=== PATIENT | female | born 1985 | race American Indian/Alaskan Native ===

== ENCOUNTER 2017-10-07 13:32 | Emergency (ER) | payer SELFPAY ==
[2017-10-07 14:36] LABS: Hematocrit 36.6 % (30.3-42.9); Hemoglobin 13.1 gm/dl (10.1-14.3); Mean Corpuscular HGB Conc 36 % (30-34); Mean Corpuscular Hemoglobin 30 pg (28-32); Mean Corpuscular Volume 83 fl (79-97); Platelet Count 297 K/mm3 (140-440); Red Blood Count 4.43 M/mm3 (3.65-5.03); Red Cell Distribution Width 14.4 % (13.2-15.2)
[2017-10-07] MEDS ORDERED: MORPHINE IV ONE (14:38)
[2017-10-07] MEDS ORDERED: TORADOL IV ONE (14:38)
[2017-10-07] MEDS ORDERED: NACL 0.9% 1000 ML 1,000 ML IV ONE (14:38)
[2017-10-07] MEDS ORDERED: ZOFRAN IV ONE (14:38)
[2017-10-07] MEDS ORDERED: KEPPRA 1,000 MG/NS 0.75% 100ML 1,000 MG/100 ML BAG IV ONE (14:39)
[2017-10-07 14:48] LABS: BUN/Creatinine Ratio 8; Blood Urea Nitrogen 5 mg/dL (7-17); Calcium 9.3 mg/dL (8.4-10.2); Hemolysis Index 4
--- NOTE | 2017-10-07 16:29 | Cat Scan Report ---
FINAL REPORT EXAM: CT HEAD/BRAIN WO CON HISTORY: headache, SZ TECHNIQUE: Noncontrast axial CT images of the brain. PRIORS: None. FINDINGS: Postsurgical changes, including basioccipital craniectomy. No parenchymal mass, hemorrhage, midline shift or hydrocephalus. No evidence of acute cortical infarct. No abnormal extra-axial fluid or air collections. Remainder of osseous calvarium grossly intact. IMPRESSION: 1. No acute intracranial findings. 2. Postsurgical changes.
--- NOTE | 2017-10-07 17:05 | Emergency Department Report ---
ED Seizure HPI - General Chief Complaint: Seizure Stated Complaint: SEIZURES Time Seen by Provider: 10/07/17 14:34 Source: patient, family Mode of arrival: Wheelchair Limitations: No Limitations - History of Present Illness Initial Comments: Patient is a 32-year-old Female with history of seizures who states that she has been out of her Keppra for the last 2 weeks and believes this to expensive for her to keep taking this medication. Patient does have a neurologist who sees her for seizures and pseudotumor cerebri. Patient is complaining of a headache after seizures she had earlier today. Patient normally gets headaches after her seizures. Patient denies any fevers chills nausea vomiting diarrhea or cough cold congestion at this time. - Related Data Previous Rx's Medication Instructions Recorded Last Taken Type Butalb/Acetamin/Caff 50-325-40 1 tab PO Q6HR PRN #12 tab 10/07/17 Unknown Rx [Fioricet] levETIRAcetam [Keppra] 500 mg PO BID #60 tablet 10/07/17 Unknown Rx Allergies Allergy/AdvReac Type Severity Reaction Status Date / Time Latex, Natural Rubber Allergy Rash Verified 10/07/17 13:42 ED Review of Systems ROS: Stated complaint: SEIZURES Other details as noted in HPI Comment: All other systems reviewed and negative ED Past Medical Hx - Past Medical History Previous Medical History?: Yes Hx Hypertension: Yes Additional medical history: pseudo tumor - Surgical History Past Surgical History?: Yes Additional Surgical History: brain sx 2013 - Social History Smoking Status: Current Every Day Smoker Substance Use Type: Alcohol - Medications Home Medications: Home Medications Medication Instructions Recorded Confirmed Last Taken Type Butalb/Acetamin/Caff 50-325-40 1 tab PO Q6HR PRN #12 tab 10/07/17 Unknown Rx [Fioricet] levETIRAcetam [Keppra] 500 mg PO BID #60 tablet 10/07/17 Unknown Rx ED Physical Exam - General Limitations: No Limitations General appearance: alert, in no apparent distress - Head Head exam: Present: atraumatic, normocephalic - Eye Eye exam: Present: normal appearance - ENT ENT exam: Present: mucous membranes moist - Neck Neck exam: Present: normal inspection - Respiratory Respiratory exam: Present: normal lung sounds bilaterally. Absent: respiratory distress - Cardiovascular Cardiovascular Exam: Present: regular rate, normal rhythm. Absent: systolic murmur, diastolic murmur, rubs, gallop - GI/Abdominal GI/Abdominal exam: Present: soft, normal bowel sounds - Extremities Exam Extremities exam: Present: normal inspection - Back Exam Back exam: Present: normal inspection - Neurological Exam Neurological exam: Present: alert, oriented X3 - Psychiatric Psychiatric exam: Present: normal affect, normal mood - Skin Skin exam: Present: warm, dry, intact, normal color. Absent: rash ED Course Vital Signs 10/07/17 13:43 Temperature 99.9 F H Pulse Rate 85 Respiratory 18 Rate Blood Pressure 135/99 O2 Sat by Pulse 100 Oximetry ED Medical Decision Making - Lab Data Result diagrams: 10/07/17 13:59 10/07/17 13:59 - Radiology Data CT of the head without contrast shows no acute process - Medical Decision Making Patient was given a good Rx car. I was able to look up Her under this program and is approximately 15 dialysis patient states that she would be able to afford. Patient was given IV fluids and medicines for her headache and she'll be discharged home. No further seizure activity was noted. Critical care attestation.: If time is entered above; I have spent that time in minutes in the direct care of this critically ill patient, excluding procedure time. ED Disposition Clinical Impression: Seizure Acute headache Qualifiers: Headache type: unspecified Intractability: not intractable Qualified Code(s): R51 - Headache Disposition: DC-01 TO HOME OR SELFCARE Is pt being admited?: No Does the pt Need Aspirin: No Condition: Stable Instructions: Epilepsy (ED) Prescriptions: Butalb/Acetamin/Caff 50-325-40 [Fioricet] 1 tab PO Q6HR PRN #12 tab PRN Reason: Headache levETIRAcetam [Keppra] 500 mg PO BID #60 tablet Referrals: PRIMARY CARE, [Primary Care Provider] - 3-5 Days Time of Disposition: 17:21
[2017-10-07] MEDS ORDERED: PERCOCET 5/325 PO ONE (18:38)
[2017-10-07] MEDS ORDERED: PERCOCET 5/325 ONE (18:43)
[2017-10-07 18:55] VITALS: BP 138/74
== END 2017-10-07 18:53 | disposition home or self-care (01) ==
LOC: ED 13:32
DX: R56.9 Unspecified convulsions (principal); R51 Headache; F17.200 Nicotine dependence, unspecified, uncomplicated; I10 Essential (primary) hypertension; Z91.040 Latex allergy status
CPT/HCPCS: 36415; 70450; 80048; 82962; 84703; 85027; 96365; 96366; 96375; 99284; J1885; J1953; J2270; J2405; J7030

== ENCOUNTER 2017-10-10 22:42 | Inpatient (IN) | payer OTHER ==
[2017-10-11] MEDS ORDERED: ZOFRAN IM ONE (02:00)
[2017-10-11] MEDS ORDERED: DILAUDID IM ONE (02:00)
[2017-10-11] MEDS ORDERED: FIORICET PO ONE (02:01)
[2017-10-11 02:10] LABS: Basophils % (Auto) 0.9 % (0.0-1.8); Eosinophils # (Auto) 0.1 K/mm3 (0.0-0.4); Eosinophils % (Auto) 3.2 % (0.0-4.3); Hematocrit 39.8 % (30.3-42.9); Hemoglobin 13.2 gm/dl (10.1-14.3); Lymphocytes # (Auto) 1.5 K/mm3 (1.2-5.4); Lymphocytes % (Auto) 31.8 % (13.4-35.0); Mean Corpuscular HGB Conc 33 % (30-34); Mean Corpuscular Hemoglobin 28 pg (28-32); Mean Corpuscular Volume 85 fl (79-97); Monocytes # (Auto) 0.7 K/mm3 (0.0-0.8); Monocytes % (Auto) 14.7 % (0.0-7.3); Platelet Count 280 K/mm3 (140-440); Red Cell Distribution Width 14.1 % (13.2-15.2)
--- NOTE | 2017-10-11 02:15 | Emergency Department Report ---
HPI - General Chief Complaint: Headache Time Seen by Provider: 10/11/17 01:51 - HPI HPI: Room 7 The patient is a 32-year-old female presenting with a chief complaint of headache. The patient states for the past 3-4 days she's had a constant headache radiating down her back. Patient admits to nausea but denies fever. Patient denies any preceding trauma. Patient also complains of mild blurred vision for the past 4 days. Patient has a history of pseudotumor cerebri. Patient gives her pain a score of 10/10 Location: [See above] Duration: [See above] Quality: Pain Severity:10/10 Modifying factors: [see above] Context: [see above] Mode of transportation: [not driving] ED Past Medical Hx - Past Medical History Hx Hypertension: Yes Additional medical history: pseudo tumor - Surgical History Additional Surgical History: brain sx 2013, - Family History Family history: no significant - Social History Smoking Status: Current Every Day Smoker (1/2 pack per day) Substance Use Type: None - Medications Home Medications: Home Medications Medication Instructions Recorded Confirmed Last Taken Type Butalb/Acetamin/Caff 50-325-40 1 tab PO Q6HR PRN #12 tab 10/07/17 10/10/17 Unknown Rx [Fioricet] levETIRAcetam [Keppra] 500 mg PO BID #60 tablet 10/07/17 10/10/17 Unknown Rx Acetaminophen/Codeine [Tylenol 1 tab PO Q4HR PRN 10/10/17 10/10/17 Unknown History /Codeine # 3 tab] acetaZOLAMIDE [Diamox TAB] 250 mg PO BID 10/10/17 10/10/17 Unknown History ED Review of Systems ROS: Stated complaint: H/A Other details as noted in HPI Constitutional: denies: fever Eyes: vision change. denies: eye pain ENT: denies: throat pain Respiratory: no symptoms reported Cardiovascular: denies: chest pain Endocrine: no symptoms reported Gastrointestinal: nausea. denies: vomiting Genitourinary: denies: dysuria Musculoskeletal: back pain Neurological: headache Physical Exam - Physical Exam Vital Signs: Vital Signs 10/10/17 22:47 Temperature 99.4 F Pulse Rate 64 Respiratory 18 Rate Blood Pressure 139/90 O2 Sat by Pulse 98 Oximetry Physical Exam: GENERAL: The patient is well-developed well-nourished female lying on stretcher appearing to be in mild discomfort. [] HEENT: Normocephalic. Atraumatic. Extraocular motions are intact. Patient has moist mucous membranes. Unable to visualize discs secondary to patient's inability to tolerate light/cooperate with exam NECK: Supple. Trachea midline. Patient complains of pain when flexing neck CHEST/LUNGS: Clear to auscultation. There is no respiratory distress noted. HEART/CARDIOVASCULAR: Regular. There is no tachycardia. There is no gallop rub or murmur. ABDOMEN: Abdomen is soft, nontender. Patient has normal bowel sounds. There is no abdominal distention. SKIN: There is no rash. There is no edema. There is no diaphoresis. NEURO: The patient is awake, alert, and oriented. The patient is cooperative. The patient has no focal neurologic deficits. The patient has normal speech. Cranial nerves II through XII grossly intact, no drift MUSCULOSKELETAL: There is no evidence of acute injury. ED Course Vital Signs 10/10/17 22:47 Temperature 99.4 F Pulse Rate 64 Respiratory 18 Rate Blood Pressure 139/90 O2 Sat by Pulse 98 Oximetry - Lumbar Puncture Consent Obtained: verbal consent, written consent Time Out Performed: No Indication for Procedure: headache Patient Position: left lateral decubitus Skin Prep: Povidone-Iodine 1% Local Anesthetic Used: Lidocaine 1% Amount of anesthesia used (mls): 5 Spinal Needle Gauge: 20G Spinal Needle Length: 4in Interspace Used: L4-L5 Complications: unable to obtain CSF Patient Tolerated Procedure: well ED Medical Decision Making - Lab Data Result diagrams: 10/11/17 01:58 10/11/17 01:58 - Differential Diagnosis pseudotumor cerebri Critical care attestation.: If time is entered above; I have spent that time in minutes in the direct care of this critically ill patient, excluding procedure time. ED Disposition Clinical Impression: Pseudotumor cerebri, Acute headache Disposition: OP ADMIT IP TO THIS HOSP Is pt being admited?: Yes Does the pt Need Aspirin: No Condition: Fair Referrals: PRIMARY CARE, [Primary Care Provider] - 3-5 Days Time of Disposition: 04:47 (hospitalist paged (Dr Unger))
[2017-10-11 02:20] LABS: BUN/Creatinine Ratio 11; Blood Urea Nitrogen 8 mg/dL (7-17); Calcium 9.7 mg/dL (8.4-10.2); Hemolysis Index 8
--- NOTE | 2017-10-11 03:45 | Cat Scan Report ---
FINAL REPORT PROCEDURE: CT HEAD/BRAIN WO CON TECHNIQUE: Computerized tomography of the head was performed without contrast material. HISTORY: headache COMPARISON: 10/07/2017 FINDINGS: Skull and scalp: The the the the there has been a suboccipital craniectomy. There is no acute bony abnormality.. Paranasal sinuses: Normal. Ventricles and subarachnoid spaces: Normal. Cerebrum: No evidence of hemorrhage, acute infarction or mass . Cerebellum and brainstem: No evidence of hemorrhage, acute infarction or mass. Vasculature: Normal. Comments: None. IMPRESSION: There is no acute intracranial abnormality.
[2017-10-11] MEDS ORDERED: XYLOCAINE 1% 20 mL ONE (04:06)
[2017-10-11] MEDS ORDERED: DILAUDID IV ONE (04:22)
[2017-10-11] MEDS ORDERED: XYLOCAINE 1% 20 mL INFILTRATI ONE (04:34)
[2017-10-11] MEDS ORDERED: TYLENOL PO PRN (06:25)
[2017-10-11] MEDS ORDERED: ZOFRAN IV PRN (06:26)
[2017-10-11] MEDS ORDERED: ZOFRAN ONE (08:08)
[2017-10-11] MEDS ORDERED: FIORICET ONE (08:13)
[2017-10-11] MEDS ORDERED: MORPHINE ONE (08:13)
[2017-10-11] MEDS: MORPHINE IV PRN ×3 (08:15→18:16)
[2017-10-11] MEDS: FIORICET PO PRN ×2 (08:16→13:40)
--- NOTE | 2017-10-11 08:56 | History and Physical Report ---
CHIEF COMPLAINT: Headache. HISTORY OF PRESENTING ILLNESS: The patient is a 32-year-old female who started having headache going on for about 4 days. Headache is in the top of the head and is associated with nausea and vomiting and also visual impairment. The patient says the headache has been constant and radiates down to back. There is no history of fever, no history of chest pain or shortness of breath. The patient presented for evaluation. PAST MEDICAL HISTORY: Pertinent for hypertension, pseudotumor cerebri. PAST SURGICAL HISTORY: Pertinent for brain surgery in 2014 and a . FAMILY HISTORY: Family history is noncontributory. SOCIAL HISTORY: The patient smokes cigarettes, does not drink alcohol and does not use illicit drugs. MEDICATIONS: The patient is on Fioricet 1 tablet by mouth every 6 hours, Keppra 500 mg by mouth twice daily, Tylenol No. 3 one by mouth every 4 hours. Diamox 250 mg by mouth twice daily. ALLERGIES: The patient is allergic to LATEX and NATURAL RUBBER. REVIEW OF SYSTEMS: CONSTITUTIONAL: There is no fever, no chills, no diaphoresis. HEENT: Headache present. No sore throat. CARDIOVASCULAR SYSTEM: There is no chest pain or orthopnea. RESPIRATORY SYSTEM: There is no shortness of breath or cough. GASTROINTESTINAL SYSTEM: Nausea and vomiting present. No abdominal pain, diarrhea or constipation. NEUROLOGICAL SYSTEM: Blurring of vision noted. Tingling in the fingers noted. No change in mental status. MUSCULOSKELETAL SYSTEM: There is no joint pain or swelling. DERMATOLOGICAL SYSTEM: There is no skin rash or itching. GENITOURINARY SYSTEM: There is no dysuria, hematuria or flank pain. Rest of system review is normal. PHYSICAL EXAMINATION: GENERAL: At the time of exam, the patient was found to be alert, oriented x 3 and not in acute distress. VITAL SIGNS: At the time of presentation show temperature of 99.4 degrees Fahrenheit, pulse of 64, respirations 18, blood pressure 139/90, O2 sat of 98% on room air. HEENT: Showed pupils to be equal, round, reactive to light and accommodating. Extraocular muscles are intact. NECK: Neck is supple with no JVD or carotid bruit. CARDIOVASCULAR SYSTEM: Showed normal first and second heart sounds with no gallops or murmurs. RESPIRATORY SYSTEM: Showed good air entry on both sides of the lungs with no abnormal breath sounds. GASTROINTESTINAL SYSTEM: Show abdomen to be full, soft, nontender with no organomegaly or rigidity. NEUROLOGIC: Neuro exam shows no focal deficit. MUSCULOSKELETAL SYSTEM: Showed no joint swelling or tenderness. DERMATOLOGICAL SYSTEM: Showed no skin rash. GENITOURINARY SYSTEM: Showing no costovertebral angle tenderness. PERTINENT LABORATORY AND IMAGING STUDIES: The patient had CT of the head without contrast done that shows no acute intracranial abnormality. Lab results; the patient has CBC done that was unremarkable except for CBC differential that shows high monocyte count of 14.7%. The patient's chemistry showed low sodium of 135 with normal potassium and low chloride of 96.5 with rest of chemistry being unremarkable. test is negative. DIAGNOSES: 1. Headache. 2. Pseudotumor cerebri. PLAN: 1. The patient will be admitted to medical floor on telemetry. 2. The patient will be on IV morphine 2 mg every 3 hours as needed for pain and headache. 3. The patient will be on IV Zofran 4 mg every 8 hours for nausea and vomiting. 4. The patient will be on Tylenol 650 mg by mouth every 4 hours for fever and headache. 5. The patient will have Neurology consult with Macy Orourke for management of pseudotumor cerebri with persistent headache and also for having unsuccessful lumbar puncture by the Emergency Room physician. 6. The patient's home medications will be started as shown in the medication reconciliation section. JOB# [id number] OCN/NTS
[2017-10-11] MEDS: TYLENOL #3 PO PRN ×2 (09:43→21:02)
[2017-10-11] MEDS: KEPPRA PO SCH ×2 (09:44→21:05)
--- NOTE | 2017-10-11 10:10 | Progress Note ---
Assessment and Plan Assessment and plan: Pseudotumor cerebri. Pt reports LP attempted in the ER but unsuccessful. Radiology to perform LP per reports. Headache. Cont. supportive care History Interval history: No new issues overnight. C/o h/a Hospitalist Physical - Constitutional Vitals: Temp Pulse Resp BP Pulse Ox 97.4 F L 60 18 133/83 99 10/11/17 07:30 10/11/17 07:30 10/11/17 08:16 10/11/17 07:30 10/11/17 07:30 General appearance: Present: no acute distress, well-nourished - EENT Eyes: Present: PERRL, EOM intact ENT: hearing intact, clear oral mucosa, dentition normal - Neck Neck: Present: supple, normal ROM - Respiratory Respiratory effort: normal Respiratory: bilateral: CTA - Cardiovascular Rhythm: regular Heart Sounds: Present: S1 & S2. Absent: gallop, rub - Extremities Extremities: no ischemia, No edema, Full ROM - Abdominal General gastrointestinal: soft, non-tender, non-distended, normal bowel sounds - Integumentary Integumentary: Present: clear, warm, dry - Neurologic Neurologic: CNII-XII intact, moves all extremities Results - Labs CBC & Chem 7: 10/11/17 01:58 10/11/17 01:58 Labs: Laboratory Last Values WBC 4.7 K/mm3 (4.5-11.0) 10/11/17 01:58 RBC 4.70 M/mm3 (3.65-5.03) 10/11/17 01:58 Hgb 13.2 gm/dl (10.1-14.3) 10/11/17 01:58 Hct 39.8 % (30.3-42.9) 10/11/17 01:58 MCV 85 fl (79-97) 10/11/17 01:58 MCH 28 pg (28-32) 10/11/17 01:58 MCHC 33 % (30-34) 10/11/17 01:58 RDW 14.1 % (13.2-15.2) 10/11/17 01:58 Plt Count 280 K/mm3 (140-440) 10/11/17 01:58 Lymph % (Auto) 31.8 % (13.4-35.0) 10/11/17 01:58 [place] % (Auto) 14.7 % (0.0-7.3) H 10/11/17 01:58 Eos % (Auto) 3.2 % (0.0-4.3) 10/11/17 01:58 Baso % (Auto) 0.9 % (0.0-1.8) 10/11/17 01:58 Lymph # 1.5 K/mm3 (1.2-5.4) 10/11/17 01:58 [place] # 0.7 K/mm3 (0.0-0.8) 10/11/17 01:58 Eos # 0.1 K/mm3 (0.0-0.4) 10/11/17 01:58 Baso # 0.0 K/mm3 (0.0-0.1) 10/11/17 01:58 Seg Neutrophils % 49.4 % (40.0-70.0) 10/11/17 01:58 Seg Neutrophils # 2.3 K/mm3 (1.8-7.7) 10/11/17 01:58 Sodium 135 mmol/L (137-145) L 10/11/17 01:58 Potassium 3.9 mmol/L (3.6-5.0) 10/11/17 01:58 Chloride 96.5 mmol/L (98-107) L 10/11/17 01:58 Carbon Dioxide 25 mmol/L (22-30) 10/11/17 01:58 Anion Gap 17 mmol/L 10/11/17 01:58 BUN 8 mg/dL (7-17) 10/11/17 01:58 Creatinine 0.7 mg/dL (0.7-1.2) 10/11/17 01:58 Estimated GFR > 60 ml/min 10/11/17 01:58 BUN/Creatinine Ratio 11 % 10/11/17 01:58 Glucose 102 mg/dL (65-100) H 10/11/17 01:58 Calcium 9.7 mg/dL (8.4-10.2) 10/11/17 01:58 HCG, Qual Negative (Negative) 10/11/17 01:58
[2017-10-11] MEDS: DIAMOX PO SCH ×2 (10:51→21:04)
[2017-10-11] MEDS: TORADOL IV PRN (16:23)
[2017-10-11 17:20] LABS: HCG Qualitative,Urine Negative (Negative)
[2017-10-11 17:27] LABS: INR 1.04 (0.87-1.13); Partial Thromboplastin Time 27.6 Sec. (24.2-36.6)
[2017-10-11] MEDS: XANAX PO PRN (21:02)
[2017-10-12] MEDS: FIORICET PO PRN ×2 (04:30→13:04)
[2017-10-12] MEDS: MORPHINE IV PRN ×3 (07:15→23:31)
[2017-10-12] MEDS ORDERED: XYLOCAINE 1% 20 mL ONE (07:36)
--- NOTE | 2017-10-12 08:47 | Procedure Note ---
Date of procedure: 10/12/17 Pre-op diagnosis: pseudotumor cerebri Post-op diagnosis: same Procedure: lumbar puncture under flouro Findings: elevated pressures Anesthesia: local Surgeon: BOBO KELLER Estimated blood loss: none Pathology: list (4 CSF tubes totaling 17cc) Specimen disposition: to lab Condition: stable Disposition: floor
--- NOTE | 2017-10-12 08:50 | Fluoroscopy Report ---
FLUOROSCOPY LUMBAR PUNCTURE History: Pseudotumor cerebri Description of procedure: Informed consent was obtained. Sterile technique was utilized. 1% lidocaine for skin anesthesia. Using fluoroscopy guidance, lumbar puncture was performed at the L2-3 level. One fluoroscopic image was saved. There was spontaneous return of clear CSF. The opening pressure was elevated measuring 40 cm of water. A total of 17 cc of CSF fluid was collected in 4 tubes. The closing pressure measured 15 cm water. The patient tolerated the procedure without difficulty. Impression: Successful fluoroscopy-guided lumbar puncture. Elevated opening pressure as described.
[2017-10-12] MEDS: XANAX PO PRN ×2 (08:57→21:15)
[2017-10-12] MEDS: DIAMOX PO SCH ×2 (09:23→21:15)
[2017-10-12] MEDS: KEPPRA PO SCH ×2 (09:23→21:15)
[2017-10-12] MEDS: TYLENOL #3 PO PRN ×2 (09:24→21:15)
[2017-10-12 10:44] LABS: Appearance,CSF Clear; Basophils CSF 0 %; Red Blood Cell,CSF 0 /mm3 (0-0); White Blood Cell,CSF 0 /mm3 (1-10)
[2017-10-12 10:45] LABS: Total Cells Counted 100 /mm3
--- NOTE | 2017-10-12 15:03 | Progress Note ---
Assessment and Plan Assessment and plan: Pseudotumor cerebri. Radiology completed LP this am. F/U labs.-- Reported elevated pressures per IR. Neurology consult pending Headache. Cont. supportive care History Interval history: No new issues overnight. C/o h/a Hospitalist Physical - Constitutional Vitals: Temp Pulse Resp BP Pulse Ox 98.5 F 73 16 103/60 99 10/12/17 10:56 10/12/17 10:56 10/12/17 10:56 10/12/17 10:56 10/12/17 10:56 General appearance: Present: no acute distress, well-nourished - EENT Eyes: Present: PERRL, EOM intact ENT: hearing intact, clear oral mucosa, dentition normal - Neck Neck: Present: supple, normal ROM - Respiratory Respiratory effort: normal Respiratory: bilateral: CTA - Cardiovascular Rhythm: regular Heart Sounds: Present: S1 & S2. Absent: gallop, rub - Extremities Extremities: no ischemia, No edema, Full ROM - Abdominal General gastrointestinal: soft, non-tender, non-distended, normal bowel sounds - Integumentary Integumentary: Present: clear, warm, dry - Neurologic Neurologic: CNII-XII intact, moves all extremities Results - Labs CBC & Chem 7: 10/11/17 15:57 10/11/17 01:58 Labs: Laboratory Last Values WBC 4.7 K/mm3 (4.5-11.0) 10/11/17 01:58 RBC 4.70 M/mm3 (3.65-5.03) 10/11/17 01:58 Hgb 13.2 gm/dl (10.1-14.3) 10/11/17 01:58 Hct 39.8 % (30.3-42.9) 10/11/17 01:58 MCV 85 fl (79-97) 10/11/17 01:58 MCH 28 pg (28-32) 10/11/17 01:58 MCHC 33 % (30-34) 10/11/17 01:58 RDW 14.1 % (13.2-15.2) 10/11/17 01:58 Plt Count 298 K/mm3 (140-440) 10/11/17 15:57 Lymph % (Auto) 31.8 % (13.4-35.0) 10/11/17 01:58 [place] % (Auto) 14.7 % (0.0-7.3) H 10/11/17 01:58 Eos % (Auto) 3.2 % (0.0-4.3) 10/11/17 01:58 Baso % (Auto) 0.9 % (0.0-1.8) 10/11/17 01:58 Lymph # 1.5 K/mm3 (1.2-5.4) 10/11/17 01:58 [place] # 0.7 K/mm3 (0.0-0.8) 10/11/17 01:58 Eos # 0.1 K/mm3 (0.0-0.4) 10/11/17 01:58 Baso # 0.0 K/mm3 (0.0-0.1) 10/11/17 01:58 Seg Neutrophils % 49.4 % (40.0-70.0) 10/11/17 01:58 Seg Neutrophils # 2.3 K/mm3 (1.8-7.7) 10/11/17 01:58 PT 14.1 Sec. (12.2-14.9) 10/11/17 15:57 INR 1.04 (0.87-1.13) 10/11/17 15:57 APTT 27.6 Sec. (24.2-36.6) 10/11/17 15:57 Sodium 135 mmol/L (137-145) L 10/11/17 01:58 Potassium 3.9 mmol/L (3.6-5.0) 10/11/17 01:58 Chloride 96.5 mmol/L (98-107) L 10/11/17 01:58 Carbon Dioxide 25 mmol/L (22-30) 10/11/17 01:58 Anion Gap 17 mmol/L 10/11/17 01:58 BUN 8 mg/dL (7-17) 10/11/17 01:58 Creatinine 0.7 mg/dL (0.7-1.2) 10/11/17 01:58 Estimated GFR > 60 ml/min 10/11/17 01:58 BUN/Creatinine Ratio 11 % 10/11/17 01:58 Glucose 102 mg/dL (65-100) H 10/11/17 01:58 Calcium 9.7 mg/dL (8.4-10.2) 10/11/17 01:58 HCG, Qual Negative (Negative) 10/11/17 01:58 Urine HCG, Qual Negative (Negative) 10/10/17 Unknown CSF Appearance Clear 10/11/17 08:32 CSF Color Colorless 10/11/17 08:32 CSF WBC 0 /mm3 (1-10) 10/11/17 08:32 CSF RBC 0 /mm3 (0-0) 10/11/17 08:32 CSF Seg Neutrophils 0 % (0-6) 10/11/17 08:32 CSF Lymphocytes % 0 % (40-80) 10/11/17 08:32 CSF Reactive Lymphs 0 % 10/11/17 08:32 CSF Monocytes % 0 % (15-45) 10/11/17 08:32 CSF Eosinophils % 0 % 10/11/17 08:32 CSF Basophils 0 % 10/11/17 08:32 CSF Comment No cells seen 10/11/17 08:32 CSF Pathologist Review C 10/11/17 08:32
--- NOTE | 2017-10-12 16:35 | Progress Note ---
Subjective Date of service: 10/12/17 Interval history: certainly the CSF results appear to be pseudotumor with OP of 40 recommend looking at CSF indices the CT of brain is normal only issue is venous sinus assessment would be good to get MRI treatment diamox 250 mg po BID and aldactone BID thanks Objective - Vital Sign Vital Signs - 12hr 10/12/17 10/12/17 10/12/17 05:10 06:00 10:56 Temperature 98.7 F 98.5 F Pulse Rate 61 62 73 Respiratory 16 16 Rate Blood Pressure 108/69 103/60 Blood Pressure 108/69 [Left] O2 Sat by Pulse 100 99 Oximetry - Laboratory Findings CBC and BMP: 10/11/17 15:57 10/11/17 01:58 Abnormal Lab Findings: Abnormal Labs 10/11/17 10/11/17 01:58 01:58 [place] % (Auto) 14.7 H Sodium 135 L Chloride 96.5 L Glucose 102 H
[2017-10-12] MEDS: TORADOL IV PRN (16:49)
[2017-10-12 18:49] LABS: Glucose,CSF 39 mg/dL
[2017-10-13] MEDS: FIORICET PO PRN ×2 (07:45→14:10)
--- NOTE | 2017-10-13 08:25 | Progress Note ---
Subjective Date of service: 10/13/17 Interval history: since the CSF is acellular and slight increase in protein this does not need further work up she can go home and follow up with n/surgery at [facility] this is very compliactaed n/surg issue not amenable to medical management Objective - Vital Sign Vital Signs - 12hr 10/12/17 10/12/17 22:00 23:01 Temperature 98.8 F Pulse Rate 75 Respiratory 20 16 Rate Blood Pressure 105/62 O2 Sat by Pulse 99 98 Oximetry - Laboratory Findings CBC and BMP: 10/11/17 15:57 10/11/17 01:58 Abnormal Lab Findings: Abnormal Labs 10/11/17 10/11/17 01:58 01:58 [place] % (Auto) 14.7 H Sodium 135 L Chloride 96.5 L Glucose 102 H
[2017-10-13] MEDS: DIAMOX PO SCH (10:01)
[2017-10-13] MEDS: XANAX PO PRN (10:02)
[2017-10-13] MEDS: KEPPRA PO SCH (10:02)
--- NOTE | 2017-10-13 11:31 | Consultation ---
HISTORY OF PRESENT ILLNESS: This is a 32-year-old black female that presents to [facility] with new onset of worsening headaches. She has a profoundly complicated past medical history of being followed at [facility] for Arnold-Chiari malformation by her history, but also in addition, she has migraine headaches and has undergone what she describes as a balloon procedure putting a balloon at the base of C1-C2 to treat her Chiari malformation. She is followed by Dr. Young at [facility]. In addition, she was told she had pseudotumor cerebri, which is also referred to as benign intracranial hypertension (clinical comment patients with increased spinal fluid pressure that may have a known etiology such as Arnold-Chiari would not actually technically be pseudotumor cerebri). The patient in the interval has been on a number of medications. She may even have had a seizure recently and was placed on Topamax. Apparently did not do well on that and was intermittently tried on Diamox and Aldactone, although she seemed to indicate that her headaches got worse when she took these. She presented to the Emergency Room and had a CT scan of the head, which was interpreted as normal. She had spinal fluid tap, which showed elevated pressure in the range of 400 mm. I have reviewed over her results of her spinal fluid. There is just a very slight increase in the protein, which is to degrees somewhat expected. I reviewed over her CAT scan of the head and it is difficult for me to visualize exactly where the catheter is that she states is being used to treat her condition. Although, I see some very vague outline in the cerebellopontine angle, but this is quite indistinct. I do not see the ventricles being enlarged. They are not slit-like. The story and white matter definition is normal. 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 RECOMMENDATION: At this point is to have her check back with her neurosurgeon at [facility] for causing pressure , which is normal. I believe that her medical management should be redirected at [facility] as some of these issues are more neurosurgical then strictly neurological and I agree with the diagnosis of Chiari malformation based on the review of the bony windows at the base of the skull where she has a large defect. Medical management, this is very problematic. I would not actually think that headaches of these types come under good control with any management, but would defer to the Neurosurgical Department at [facility] as they are more qualified to comment about this issue. At this point, she is neurologically stable for discharge. JOB# [id number] BRAIN/FIORELLA
--- NOTE | 2017-10-13 11:39 | Discharge Summary ---
Providers - Providers Date of Admission: 10/11/17 07:05 Date of discharge: 10/13/17 Attending physician: MORGAN SANCHEZ 10/11/17 06:24 Consult to Physician [CONS] Routine Comment: Consulting Provider: MABEL CASPER Physician Instructions: Reason For Exam: PSEUDOTUMOR CEREBRI WITH PERXISTENT HEADACHE 10/11/17 13:43 Consult to Interventional Radiology [CONS] Routine Consulting Provider: MECHELLE AKBAR Reason For Exam: LP--pseudotumor cerebri Place consult to:: dr. akbar Notified:: salbador Phone number called:: overhead paged Was contact made?: Yes If yes, spoke with:: salbador Time called:: 14:12 Primary care physician: GRINDER SET UP OPERATOR Hospitalization Condition: Fair Disposition: DC-01 TO HOME OR SELFCARE - Discharge Diagnoses (1) Pseudotumor cerebri Status: Acute Core Measure Documentation - Palliative Care Palliative Care/ Comfort Measures: Not Applicable - Core Measures Any of the following diagnoses?: none Exam - Constitutional Vitals: Temp Pulse Resp BP Pulse Ox 98.8 F 75 16 105/62 98 10/12/17 23:01 10/12/17 23:01 10/12/17 23:01 10/12/17 23:01 10/12/17 23:01 Plan Activity: no driving until cleared by PCP Diet: low fat, low cholesterol, low salt Additional Instructions: 1.Follow up with Neurologist in 1-2 days. 2.Follow up with Neurosurgeon in 1-2 days. Follow up with: PRIMARY CARE, [Primary Care Provider] - 3-5 Days Prescriptions: Acetaminophen/Codeine [Tylenol /Codeine # 3 tab] 1 tab PO Q4HR PRN #10 tablet PRN Reason: Pain acetaZOLAMIDE [Diamox TAB] 250 mg PO BID #60 tablet
[2017-10-13] MEDS: TYLENOL #3 PO PRN (11:58)
[2017-10-13 12:35] VITALS: BP 109/64
== END 2017-10-13 14:47 | disposition home or self-care (01) | DRG 103 ==
LOC: ED 22:42 → 3A 10-11 07:05
PROVIDERS: ADMIT Internal Medicine; ATTEND Internal Medicine
PROC: 00JU3ZZ Inspection of Spinal Canal, Percutaneous Approach (ICD-10-PCS; 2017-10-11)
PROC: 009U3ZZ Drainage of Spinal Canal, Percutaneous Approach (ICD-10-PCS; principal; 2017-10-12)
PROC: B01B1ZZ Fluoroscopy of Spinal Cord using Low Osmolar Contrast (ICD-10-PCS; 2017-10-12)
DX: G93.2 Benign intracranial hypertension (principal); G43.909 Migraine, unspecified, not intractable, without status migrainosus; I10 Essential (primary) hypertension; F17.210 Nicotine dependence, cigarettes, uncomplicated; Z79.899 Other long term (current) drug therapy; Z91.040 Latex allergy status; Q07.00 Arnold-Chiari syndrome without spina bifida or hydrocephalus
CPT/HCPCS: 36415; 62270; 70450; 77003; 80048; 81025; 82947; 84160; 84703; 85025; 85049; 85610; 85730; 87116; 89051; 96372; 96374; 96375; 99406; J1170; J1885; J2270; J2405

== ENCOUNTER 2019-03-30 08:58 | Emergency (ER) | payer SELFPAY ==
--- NOTE | 2019-03-30 09:42 | Emergency Department Report ---
HPI - General Chief Complaint: Skin Rash Time Seen by Provider: 03/30/19 09:22 - HPI HPI: 33-year-old -[place] female presents to the emergency department with the complaint of a six-month history of issues with hyperthyroidism including a fast heart rate and some difficulty swallowing. She says she has been evaluated at another hospital previously for the symptoms but says "they did not do anything." She has been on medication for her hyperthyroidism in the past but says she has difficulty swallowing them and "they ran out." She says that food and medications will get stuck and she has some difficulty with swallowing liquids but denies any drooling. No recent travel or sick contacts at home. She denies any shortness of breath, lower extremity swelling, chest pain, fever. Patient also presents with a 1 day history of a small rash to the left upper chest that is itchy and slightly tender. ED Past Medical Hx - Past Medical History Hx Hypertension: Yes Additional medical history: pseudo tumor - Surgical History Additional Surgical History: brain sx 2013, - Social History Smoking Status: Current Every Day Smoker Substance Use Type: Alcohol - Medications Home Medications: Home Medications Medication Instructions Recorded Confirmed Last Taken Type Butalb/Acetamin/Caff 50-325-40 1 tab PO Q6HR PRN #12 tab 10/07/17 10/10/17 Unknown Rx [Fioricet 50-325-40] levETIRAcetam [Keppra] 500 mg PO BID #60 tablet 10/07/17 10/10/17 Unknown Rx Acetaminophen/Codeine [Tylenol 1 tab PO Q4HR PRN #10 tablet 10/13/17 Unknown Rx /Codeine # 3 tab] acetaZOLAMIDE [Diamox TAB] 250 mg PO BID #60 tablet 10/13/17 Unknown Rx ED Review of Systems ROS: Stated complaint: RASH Other details as noted in HPI Comment: All other systems reviewed and negative Constitutional: denies: chills, fever Eyes: denies: eye pain, vision change ENT: denies: ear pain, throat pain Respiratory: denies: cough, wheezing Cardiovascular: denies: palpitations, edema Gastrointestinal: denies: abdominal pain, vomiting Genitourinary: denies: dysuria, discharge Musculoskeletal: denies: back pain, arthralgia Skin: rash, pruritus Neurological: denies: headache, weakness Physical Exam - Physical Exam Vital Signs: Vital Signs 03/30/19 09:08 Temperature 97.5 F L Pulse Rate 115 H Respiratory 18 Rate Blood Pressure 148/89 O2 Sat by Pulse 98 Oximetry Physical Exam: GENERAL: The patient is well-developed well-nourished. HENT: Normocephalic. Atraumatic. Patient has moist mucous membranes. Oropharynx is clear. No drooling or trismus. EYES: Extraocular motions are intact. Pupils equal reactive to light bilaterally. NECK: Supple. Trachea is midline. There is some fullness to the anterior neck that could be consistent with enlarged thyroid or goiter. CHEST/LUNGS: Clear to auscultation. There is no respiratory distress noted. HEART/CARDIOVASCULAR: Regular. There is mild tachycardia. There is no murmur. ABDOMEN: Abdomen is soft, nontender. Patient has normal bowel sounds. There is no abdominal distention. SKIN: There is a circular area of rash to the left chest, just above the breast. It appears scaly. Mild erythema. Mildly tender to palpation. No crepitus, drainage, bleeding. NEURO: The patient is awake, alert, and oriented. The patient is cooperative. The patient has no focal neurologic deficits. Normal speech. MUSCULOSKELETAL: There is no tenderness or deformity. There is no limitation range of motion. There is no evidence of acute injury. ED Course Vital Signs 03/30/19 09:08 Temperature 97.5 F L Pulse Rate 115 H Respiratory 18 Rate Blood Pressure 148/89 O2 Sat by Pulse 98 Oximetry ED Medical Decision Making - Lab Data Result diagrams: 03/30/19 09:40 03/30/19 09:40 - Radiology Data Radiology results: report reviewed CT neck wo con INDICATION / CLINICAL INFORMATION: 33 years Female; enlarged thyroid, difficulty swallowing. TECHNIQUE: Contiguous thin cut axial images obtained through the neck following IV contrast. Sagittal and coronal reconstructions performed by the technologist. All CT scans at this location are performed using CT dose reduction for ALARA by means of automated exposure control. COMPARISON: None available. FINDINGS: There is fairly uniform and homogeneous enlargement of the thyroid gland on this noncontrast study which is nonspecific though may reflect goiter. There is no significant mass effect upon the visualized esophagus or trachea. MUCOSAL SPACE: There is milder prominence of the palatine soft tissues which likely reflects lymphoid hypertrophy, greater on the left. There is no significant narrowing of the airway at this level. No fluid collections are seen within this region. The epiglottis is appropriate in size at. The laryngeal structures appear fairly symmetric. LYMPH NODES: There are a few scattered cervical lymph nodes the most prominent within the jugulodigastric region measuring approximately 0.8 cm in greatest short axis diameter. These nodes are most likely reactive. SALIVARY GLANDS: The visualized parotid and submandibular glands demonstrate symmetric attenuation without calcification or significant surrounding inflammatory changes. THYROID GLAND: As above. PARANASAL SINUSES: Visualized paranasal sinuses and mastoid air cells are essentially clear. SPINE: The patient is status post suboccipital craniotomy and resection of the posterior arch of C1 for decompression in this patient with apparent Chiari I malformation. There is also presence of a partially visualized ventricular shunt. VASCULAR STRUCTURES: Vascular structures are grossly unremarkable on this noncontrast study.. Surrounding soft tissues are otherwise grossly normal. IMPRESSION: 1. There is fairly uniform and homogeneous enlargement of the thyroid gland as detailed above. - Medical Decision Making This patient presents with the complaint of some difficulty swallowing secondary to enlarged thyroid. She has a history of hyperthyroidism. She does present with some mild tachycardia but otherwise she does not appear in any acute distress. There is no drooling or trismus. Patient does not have any obvious signs of difficulty swallowing or any type of respiratory or acute distress. Labs are consistent with hyperthyroidism with a very low TSH and an elevated free T4. CT scan of the neck shows homogenous thyromegaly but nothing that shows any edema or occlusion of the trachea or esophagus. Patient says that she has propanolol at home to take. She appears safe for discharge home at this time. She has been given referrals for endocrinology for further evaluation of her hyperthyroidism. She will return to the ER with any worsening of her symptoms or any acute distress. - Differential Diagnosis Hyperthyroidism, thyromegaly, malignancy Critical Care Time: No Critical care attestation.: If time is entered above; I have spent that time in minutes in the direct care of this critically ill patient, excluding procedure time. ED Disposition Clinical Impression: Hyperthyroidism, Thyromegaly Disposition: DC-01 TO HOME OR SELFCARE Is pt being admited?: No Condition: Stable Instructions: Hyperthyroidism (ED) Additional Instructions: I have given you the referral information for 2 different local endocrinologists who can further evaluate your hyperthyroidism, and if necessary can provide referrals for a surgeon if thyroidectomy is indicated. I have also given you a referral for a local primary care clinic. Return to the emergency department with any worsening of your symptoms or any acute distress. Take your propanolol at home as prescribed. Referrals: Janiya ROGERS MD [Referring] - 2-3 Days ANDREEA HARMON MD [Staff Physician] - 2-3 Days [facility] [Outside] - 2-3 Days Time of Disposition: 12:13
[2019-03-30 09:58] LABS: Basophils % (Auto) 0.3 % (0.0-1.8); Eosinophils # (Auto) 0.1 K/mm3 (0.0-0.4); Eosinophils % (Auto) 2.7 % (0.0-4.3); Hematocrit 35.3 % (30.3-42.9); Hemoglobin 11.5 gm/dl (10.1-14.3); Lymphocytes # (Auto) 1.5 K/mm3 (1.2-5.4); Lymphocytes % (Auto) 41.8 % (13.4-35.0); Mean Corpuscular HGB Conc 33 % (30-34); Mean Corpuscular Volume 78 fl (79-97); Monocytes # (Auto) 0.5 K/mm3 (0.0-0.8); Monocytes % (Auto) 14.8 % (0.0-7.3); Platelet Count 198 K/mm3 (140-440); Red Blood Count 4.52 M/mm3 (3.65-5.03); Red Cell Distribution Width 13.7 % (13.2-15.2)
[2019-03-30 10:16] LABS: BUN/Creatinine Ratio 37; Blood Urea Nitrogen 11 mg/dL (7-17); Calcium 9.2 mg/dL (8.4-10.2); Hemolysis Index 1
[2019-03-30 10:29] LABS: Free T4 (Free Thyroxine) 3.76 ng/dL (0.76-1.46)
--- NOTE | 2019-03-30 12:00 | Cat Scan Report ---
CT neck wo con INDICATION / CLINICAL INFORMATION: 33 years Female; enlarged thyroid, difficulty swallowing. TECHNIQUE: Contiguous thin cut axial images obtained through the neck following IV contrast. Sagittal and werner l reconstructions performed by the technologist. All CT scans at this location are performed using CT dose reduction for ALARA by means of automated exposure control. COMPARISON: None available. FINDINGS: There is fairly uniform and homogeneous enlargement of the thyroid gland on this noncontras t study which is nonspecific though may reflect goiter. There is no significant mass effect upon the visualized esophagus or trachea. MUCOSAL SPACE: There is milder prominence of the palatine soft tissues which likely reflects lymphoid hypertrophy, greater on the left. There is no significant narrowing of the airway at this level. No fluid collections are seen within this region. The epiglottis is appropriate in size at. The laryngea l structures appear fairly symmetric. LYMPH NODES: There are a few scattered cervical lymph nodes the most prominent within the jugulodigas tric region measuring approximately 0.8 cm in greatest short axis diameter. These nodes are most like ly reactive. SALIVARY GLANDS: The visualized parotid and submandibular glands demonstrate symmetric attenuation wi thout calcification or significant surrounding inflammatory changes. THYROID GLAND: As above. PARANASAL SINUSES: Visualized paranasal sinuses and mastoid air cells are essentially clear. SPINE: The patient is status post suboccipital craniotomy and resection of the posterior arch of C1 f or decompression in this patient with apparent Chiari I malformation. There is also presence of a par tially visualized ventricular shunt. VASCULAR STRUCTURES: Vascular structures are grossly unremarkable on this noncontrast study.. Surrounding soft tissues are otherwise grossly normal. IMPRESSION: 1. There is fairly uniform and homogeneous enlargement of the thyroid gland as detailed above. The study was specified as stat and dictated on an emergent basis at 10:53 AM Central standard time. Signer Name: Stef Harper MD Signed: 03/30/2019 11:55 AM Workstation Name: [id number]
[2019-03-30 12:36] VITALS: BP 154/92
== END 2019-03-30 12:37 | disposition home or self-care (01) ==
LOC: ED 08:58
DX: E05.90 Thyrotoxicosis, unspecified without thyrotoxic crisis or storm (principal); E01.0 Iodine-deficiency related diffuse (endemic) goiter; I10 Essential (primary) hypertension; F17.200 Nicotine dependence, unspecified, uncomplicated; Z98.890 Other specified postprocedural states; Z79.899 Other long term (current) drug therapy; Z91.048 Other nonmedicinal substance allergy status
CPT/HCPCS: 36415; 70490; 80048; 84439; 84443; 84703; 85025